=== PATIENT | female | born 1975 | race Hispanic/Latino ===

== ENCOUNTER 2017-10-08 16:25 | Emergency (ER) | payer MEDICAID ==
[2017-10-08 17:01] VITALS: BP 120/70
[2017-10-08] MEDS ORDERED: PHENERGAN PR ONE (20:43)
[2017-10-08 20:46] LABS: Bacteria,Urine 1+ /HPF (Negative); Bilirubin,Urine NEG (Negative); Blood,Urine NEG (Negative); Color,Urine Yellow (Yellow); Mucus,Urine FEW /HPF; Protein,Urine <15 mg/dL mg/dL (Negative); Urobilinogen,Urine < 2.0 mg/dL (<2.0)
--- NOTE | 2017-10-08 20:50 | Emergency Department Report ---
ED General Adult HPI - General Chief complaint: Back Pain/Injury Stated complaint: BACK PAIN Time Seen by Provider: 10/08/17 20:44 Source: patient Mode of arrival: Ambulatory Limitations: No Limitations - History of Present Illness Initial comments: 42-year-old female comes in complaining of back pain. Patient in hospital from the through November 07. Patient complains of back pain but has not taken anything for pain. Patient was discharged with naproxen and omeprazole and Valium. He has had no recent trauma to her back remote trauma 3- 4 weeks ago. She reports she been able to walk then with no problem. Able to tote heavy objects. -: week(s) (3) Location: back Severity scale (0 -10): 10 Consistency: intermittent Improves with: rest Treatments Prior to Arrival: none - Related Data Home Medications Medication Instructions Recorded Confirmed Last Taken Diazepam [Valium] 10 mg PO DAILY 10/05/17 10/05/17 10/04/17 08:00 10mg Naproxen [Naprosyn] 500 mg PO 4XD 10/05/17 10/05/17 10/04/17 08:00 500mg Omeprazole Magnesium [PriLOSEC] 20 mg PO DAILY 10/05/17 10/05/17 10/04/17 08:00 20mg Previous Rx's Medication Instructions Recorded Last Taken Type Ibuprofen [Motrin 800 MG tab] 800 mg PO Q8HR PRN #30 tablet 10/08/17 Unknown Rx Allergies Allergy/AdvReac Type Severity Reaction Status Date / Time acetaminophen [From Tylenol] AdvReac Rash Verified 10/04/17 17:37 naloxone AdvReac Swelling Verified 10/04/17 17:38 ED Review of Systems ROS: Stated complaint: BACK PAIN Other details as noted in HPI Musculoskeletal: back pain ED Past Medical Hx - Past Medical History Previous Medical History?: Yes Hx Congestive Heart Failure: No Hx Diabetes: No Hx Psychiatric Treatment: Yes (opiate abuse,) Hx Asthma: No Hx COPD: No Additional medical history: Back pain, Pancreatitis - Surgical History Past Surgical History?: Yes Additional Surgical History: Spinal fusion, Back - Social History Smoking Status: Current Some Day Smoker Substance Use Type: Alcohol, Prescribed - Medications Home Medications: Home Medications Medication Instructions Recorded Confirmed Last Taken Type Diazepam [Valium] 10 mg PO DAILY 10/05/17 10/05/17 10/04/17 08:00 History 10mg Naproxen [Naprosyn] 500 mg PO 4XD 10/05/17 10/05/17 10/04/17 08:00 History 500mg Omeprazole Magnesium [PriLOSEC] 20 mg PO DAILY 10/05/17 10/05/17 10/04/17 08:00 History 20mg Ibuprofen [Motrin 800 MG tab] 800 mg PO Q8HR PRN #30 tablet 10/08/17 Unknown Rx ED Physical Exam - General Limitations: No Limitations - Head Head exam: Present: atraumatic, normocephalic - Respiratory Respiratory exam: Present: normal lung sounds bilaterally. Absent: respiratory distress - Cardiovascular Cardiovascular Exam: Present: regular rate, normal rhythm. Absent: systolic murmur, diastolic murmur, rubs, gallop - GI/Abdominal GI/Abdominal exam: Present: soft, normal bowel sounds - Back Exam Back exam: Present: normal inspection, full ROM ED Course Vital Signs 10/08/17 16:54 Temperature 98.4 F Pulse Rate 94 H Respiratory 18 Rate Blood Pressure 120/70 O2 Sat by Pulse 100 Oximetry Critical care attestation.: If time is entered above; I have spent that time in minutes in the direct care of this critically ill patient, excluding procedure time. ED Disposition Clinical Impression: Back pain Qualifiers: Back pain location: low back pain Chronicity: acute Back pain laterality: bilateral Sciatica presence: without sciatica Qualified Code(s): M54.5 - Low back pain Disposition: DC- TO HOME OR SELFCARE Is pt being admited?: No Does the pt Need Aspirin: No Condition: Stable Instructions: Acute Low Back Pain (ED) Additional Instructions: Please take pain medication for your back. Please follow-up with her primary care provider. Prescriptions: Ibuprofen [Motrin 800 MG tab] 800 mg PO Q8HR PRN #30 tablet PRN Reason: Pain , Severe (7-10) Referrals: PRIMARY CARE, [Primary Care Provider] - 3-5 Days [facility] [Provider Group] - 3-5 Days
[2017-10-08 20:53] LABS: HCG Qualitative,Urine Negative (Negative)
[2017-10-08] MEDS: TORADOL IM ONE ×3 (21:08→21:14)
--- NOTE | 2017-10-08 22:02 | Emergency Department Report ---
ED Psych HPI - General Chief Complaint: Back Pain/Injury Stated Complaint: BACK PAIN Time Seen by Provider: 10/08/17 20:44 Source: patient Mode of arrival: Ambulatory - History of Present Illness Initial Comments: Ms. Higuera is 42 yo female who presents with need for "detox". She has a history of bipolar affective disorder and opioid addiction. She explains "I was not detoxed properly." Ms. Higuera was recently discharged from our [facility] today 11:30. She was receiving Suboxone while in the hospital. According to her discharge folder she was referred to [facility] medical stabilization service. She was provided a list of Suboxone providers and self-help meetings. She desires assistance with detoxing. She continues to have diarrhea. She is eating. She has a full appetite. She was very upset that she was discharged before lunch. She states with her history of bipolar disorder she needs a safe environment. Complaint: other (opioid addition) - Related Data Home Medications Medication Instructions Recorded Confirmed Last Taken Diazepam [Valium] 10 mg PO DAILY 10/05/17 10/05/17 10/04/17 08:00 10mg Naproxen [Naprosyn] 500 mg PO 4XD 10/05/17 10/05/17 10/04/17 08:00 500mg Omeprazole Magnesium [PriLOSEC] 20 mg PO DAILY 10/05/17 10/05/17 10/04/17 08:00 20mg Previous Rx's Medication Instructions Recorded Last Taken Type Ibuprofen [Motrin 800 MG tab] 800 mg PO Q8HR PRN #30 tablet 10/08/17 Unknown Rx Allergies Allergy/AdvReac Type Severity Reaction Status Date / Time acetaminophen [From Tylenol] AdvReac Rash Verified 10/04/17 17:37 naloxone AdvReac Swelling Verified 10/04/17 17:38 ED Review of Systems ROS: Stated complaint: BACK PAIN Other details as noted in HPI Comment: All other systems reviewed and negative Constitutional: denies: fever, malaise Respiratory: denies: cough Musculoskeletal: back pain ED Past Medical Hx - Past Medical History Previous Medical History?: Yes Hx Congestive Heart Failure: No Hx Diabetes: No Hx Psychiatric Treatment: Yes (opiate abuse,) Hx Asthma: No Hx COPD: No Additional medical history: Back pain, Pancreatitis - Surgical History Past Surgical History?: Yes Additional Surgical History: Spinal fusion, Back - Social History Smoking Status: Current Some Day Smoker Substance Use Type: Alcohol, Prescribed - Medications Home Medications: Home Medications Medication Instructions Recorded Confirmed Last Taken Type Diazepam [Valium] 10 mg PO DAILY 10/05/17 10/05/17 10/04/17 08:00 History 10mg Naproxen [Naprosyn] 500 mg PO 4XD 10/05/17 10/05/17 10/04/17 08:00 History 500mg Omeprazole Magnesium [PriLOSEC] 20 mg PO DAILY 10/05/17 10/05/17 10/04/17 08:00 History 20mg Ibuprofen [Motrin 800 MG tab] 800 mg PO Q8HR PRN #30 tablet 10/08/17 Unknown Rx ED Physical Exam - General Limitations: No Limitations General appearance: alert, in no apparent distress - Head Head exam: Present: atraumatic, normocephalic - Eye Eye exam: Present: normal appearance - ENT ENT exam: Present: mucous membranes moist - Neck Neck exam: Present: normal inspection. Absent: tenderness, meningismus - Respiratory Respiratory exam: Present: normal lung sounds bilaterally. Absent: respiratory distress, wheezes, rales, rhonchi - Cardiovascular Cardiovascular Exam: Present: regular rate, normal rhythm, normal heart sounds. Absent: systolic murmur, diastolic murmur, rubs, gallop - GI/Abdominal GI/Abdominal exam: Present: soft, normal bowel sounds. Absent: distended, tenderness, guarding, rebound - Extremities Exam Extremities exam: Present: normal inspection - Back Exam Back exam: Present: normal inspection - Neurological Exam Neurological exam: Present: alert, oriented X3, normal gait - Psychiatric Psychiatric exam: Present: normal affect, normal mood. Absent: depressed, agitated, anxious, flat affect, manic, homicidal ideation, suicidal ideation - Skin Skin exam: Present: warm, dry, intact, normal color. Absent: rash ED Course Vital Signs 10/08/17 10/08/17 16:54 21:14 Temperature 98.4 F Pulse Rate 94 H Respiratory 18 18 Rate Blood Pressure 120/70 O2 Sat by Pulse 100 Oximetry ED Medical Decision Making - Medical Decision Making Ms. Higuera was just released from hospital today for opioid withdrawal. After 3 day hospitalization she stated that she was not properly detoxed. She continues to have diarrhea although patient appears well. She has normal vital signs. She was evaluated by mental health gallery director. After assessment, she desired to be discharged. No evidence of suicidality or homicidality. No indication of acute depression. She is discharged home. She was given outpatient drug resources from recent hospital discharge. Critical care attestation.: If time is entered above; I have spent that time in minutes in the direct care of this critically ill patient, excluding procedure time. ED Disposition Clinical Impression: Opioid dependence Back pain Qualifiers: Back pain location: low back pain Chronicity: acute Back pain laterality: bilateral Sciatica presence: without sciatica Qualified Code(s): M54.5 - Low back pain Disposition: DC- TO HOME OR SELFCARE Is pt being admited?: No Does the pt Need Aspirin: No Condition: Stable Instructions: Opioid Dependence (ED) Additional Instructions: Please follow up with listed suboxone clinic provided in red folder. Prescriptions: Ibuprofen [Motrin 800 MG tab] 800 mg PO Q8HR PRN #30 tablet PRN Reason: Pain , Severe (7-10) Referrals: [facility] [Provider Group] - 3-5 Days Time of Disposition: 00:55
[2017-10-08] MEDS ORDERED: ZOFRAN ODT PO ONE (22:22)
== END 2017-10-09 02:13 | disposition home or self-care (01) ==
LOC: ED 16:25
DX: F19.20 Other psychoactive substance dependence, uncomplicated (principal); M54.9 Dorsalgia, unspecified; F17.200 Nicotine dependence, unspecified, uncomplicated; Z88.6 Allergy status to analgesic agent; Z88.8 Allergy status to other drugs, medicaments and biological substances
CPT/HCPCS: 81001; 81025; 87086; 96372; 99283; J1885; Q0162

== ENCOUNTER 2017-10-09 06:06 | Emergency (ER) | payer MEDICAID ==
[2017-10-09] MEDS ORDERED: ZOFRAN ODT ONE (06:21)
[2017-10-09] MEDS ORDERED: ZOFRAN ODT PO ONE (12:19)
[2017-10-09] MEDS ORDERED: MOTRIN PO ONE (12:19)
--- NOTE | 2017-10-09 12:31 | Emergency Department Report ---
HPI - General Chief Complaint: Medical Clearance Time Seen by Provider: 10/09/17 12:09 - [facility] HPI: Room 6 The patient is a 42-year-old female presenting with a chief complaint of opiate dependence. The patient states she was released from this hospital after being detoxed from heroin. The patient states she feels as though she was discharged too soon as she believes she is still actively detoxing. Patient states she has nausea and still has diarrhea. Location: [See above] Duration: [See above] Quality: Nausea Severity: Moderate Modifying factors: [see above] Context: [see above] Mode of transportation: [not driving] ED Past Medical Hx - Past Medical History Previous Medical History?: Yes Hx Psychiatric Treatment: Yes (opiate abuse,) Additional medical history: Back pain, Pancreatitis - Surgical History Past Surgical History?: Yes Additional Surgical History: Spinal fusion, Back - Family History Family history: no significant - Social History Smoking Status: Current Some Day Smoker Substance Use Type: Alcohol (rarely), Cocaine, Heroin (IVDA) - Medications Home Medications: Home Medications Medication Instructions Recorded Confirmed Last Taken Type Diazepam [Valium] 10 mg PO DAILY 10/05/17 10/05/17 10/04/17 08:00 History 10mg Naproxen [Naprosyn] 500 mg PO 4XD 10/05/17 10/05/17 10/04/17 08:00 History 500mg Omeprazole Magnesium [PriLOSEC] 20 mg PO DAILY 10/05/17 10/05/17 10/04/17 08:00 History 20mg Ibuprofen [Motrin 800 MG tab] 800 mg PO Q8HR PRN #30 tablet 10/08/17 Unknown Rx ED Review of Systems ROS: Stated complaint: DETOX Other details as noted in HPI Constitutional: no symptoms reported Gastrointestinal: nausea, diarrhea Musculoskeletal: back pain Physical Exam - Physical Exam Vital Signs: Vital Signs 10/09/17 06:15 Temperature 98.5 F Pulse Rate 93 H Respiratory 20 Rate Blood Pressure 118/69 O2 Sat by Pulse 97 Oximetry Physical Exam: GENERAL: The patient is well-developed well-nourished female standing in room no apparent acute distress. [] HEENT: Normocephalic. Atraumatic. Extraocular motions are intact. Patient has moist mucous membranes. NECK: Supple. Trachea midline CHEST/LUNGS: Clear to auscultation. There is no respiratory distress noted. HEART/CARDIOVASCULAR: Regular. There is no tachycardia. There is no gallop rub or murmur. ABDOMEN: Abdomen is soft, nontender. Patient has normal bowel sounds. There is no abdominal distention. SKIN: There is no rash. There is no edema. There is no diaphoresis. NEURO: The patient is awake, alert, and oriented. The patient is cooperative. The patient has normal speech MUSCULOSKELETAL: There is no evidence of acute injury. ED Course Vital Signs 10/09/17 06:15 Temperature 98.5 F Pulse Rate 93 H Respiratory 20 Rate Blood Pressure 118/69 O2 Sat by Pulse 97 Oximetry - Consultations Consultation #1: 10/09/17 13:54 Case discussed with mental health counselor Alicia-Will attempt to place patient ED Medical Decision Making - Differential Diagnosis opiate withdrawal Critical care attestation.: If time is entered above; I have spent that time in minutes in the direct care of this critically ill patient, excluding procedure time. ED Disposition Clinical Impression: Opioid dependence Disposition: [id number]/[facility]PSY UNIT Is pt being admited?: No Does the pt Need Aspirin: No Condition: Fair Referrals: PRIMARY CARE, [Primary Care Provider] - 3-5 Days Time of Disposition: 13:54 (awaiting acceptance)
--- NOTE | 2017-10-09 15:37 | Consultation ---
History of Present Illness - Reason for Consult Consult date: 10/09/17 Reason for consult: Initial Psychiatric Evaluation - Chief Complaint Chief complaint: " Detox" - History of Present Psychiatric Illness The patient is a 42-year-old female presenting with a chief complaint of opiate dependence. The patient states she was released from this hospital after being detoxed from heroin. The patient states she feels as though she was discharged too soon as she believes she is still actively detoxing. Patient states she has nausea and still has diarrhea. Medications and Allergies Allergies Allergy/AdvReac Type Severity Reaction Status Date / Time acetaminophen [From Tylenol] AdvReac Rash Verified 10/04/17 17:37 naloxone AdvReac Swelling Verified 10/04/17 17:38 Home Medications Medication Instructions Recorded Confirmed Last Taken Type Diazepam [Valium] 10 mg PO DAILY 10/05/17 10/05/17 10/04/17 08:00 History 10mg Naproxen [Naprosyn] 500 mg PO 4XD 10/05/17 10/05/17 10/04/17 08:00 History 500mg Omeprazole Magnesium [PriLOSEC] 20 mg PO DAILY 10/05/17 10/05/17 10/04/17 08:00 History 20mg Ibuprofen [Motrin 800 MG tab] 800 mg PO Q8HR PRN #30 tablet 10/08/17 Unknown Rx Mental Status Exam - Vital signs Last Vital Signs Temp 98.5 F 10/09/17 06:15 Pulse 93 H 10/09/17 06:15 Resp 20 10/09/17 13:44 BP 118/69 10/09/17 06:15 Pulse Ox 97 10/09/17 06:15 Results All other labs normal. Assessment and Plan Assessment and plan: DDx: Opiate Use Disorder, severe; Cocaine Use Disorder, severe, Mood Disorder Recommendations/Plan: 1. Will assist with inpatient psychiatric services. 2. Start Clonidine 0.05 mg TID opiate withdrawal; Ativan 1mg po [id number] PRN anxiety/agitation; Zofran 4mg po [id number] for nausea; Seroquel 100mg po QHS mood. Discussed metabolic side effects to medications. She verbalizes some understanding. 3. Will continue to monitor mood, sleep, appetite, compliance, side effects, and opiate withdrawal symptoms.
[2017-10-09] MEDS ORDERED: MOTRIN ONE (23:21)
[2017-10-09] MEDS: ATIVAN PO PRN (23:27)
[2017-10-10] MEDS ORDERED: PHENERGAN PO PRN (10:55)
[2017-10-10] MEDS ORDERED: IMODIUM PO PRN (10:56)
[2017-10-10] MEDS: CATAPRES PO SCH ×3 (12:55→20:36)
[2017-10-10] MEDS: ATIVAN PO PRN (12:56)
[2017-10-10] MEDS ORDERED: TUMS PO ONE (22:21)
[2017-10-11] MEDS: ATIVAN PO PRN (04:10)
[2017-10-11] MEDS: CATAPRES PO SCH (08:17)
[2017-10-11 08:18] VITALS: BP 126/78
--- NOTE | 2017-10-11 14:33 | Progress Note ---
Subjective - Reason for Consult Consult date: 10/11/17 Reason for consult: Psychiatry Follow-up - Chief Complaint Chief complaint: "My ribs hurt" 42-year-old female presenting with a chief complaint of opiate dependence. Today the patient is calm and cooperative during the assessment. She stated that she was having rib pain, but denies body aches and N/V when asked. 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 Mental Status Exam - Vital signs Last Vital Signs Temp 98 F 10/11/17 08:18 Pulse 103 H 10/11/17 08:18 Resp 16 10/11/17 08:18 BP 126/78 10/11/17 08:18 Pulse Ox 97 10/11/17 08:18 - Exam Narrative exam: MSE: Appearance: calm, cooperative Behavior: regular eye contact Speech: regular rate and tone Mood: "okay" Affect: congruent to mood Thought Process: linear Thought Content: denies SI/HI's and AVH's Motor Activity: ambulatory Cognition: A/O x 3 Insight: appropriate Judgment: appropriate Assessment and Plan Impression: Opiate Use DO. Substance Use DO (cocaine). Today the patient is calm and cooperative during the assessment. DDx: R/O Mood DO Recommendations/Plan: The patient can follow up with [facility] for outpatient rehab services or [facility] for outpatient psy/rehab services.
== END 2017-10-11 13:24 | disposition home or self-care (01) ==
LOC: EEVIPCON 06:06 → ED 06:06
DX: F11.23 Opioid dependence with withdrawal (principal); F17.200 Nicotine dependence, unspecified, uncomplicated
CPT/HCPCS: 99282; Q0162